=== PATIENT | female | born 1935 | race Caucasian/White ===

== ENCOUNTER → 2016-08-04 | Outpatient (CLI) | payer OTHER ==
[~2016-08-04] MED LIST: ADULT LOW DOSE81 MG PO; CARVEDILOL12.5 MG PO; COUMADIN 2.5MG2.5 M1 PO; COUMADIN 3 MG TA3 MG PO; COUMADIN 5 MG TA5 M1 PO; DILTIAZEM 24HR240 M2 PO; DIOVAN40 MG PO; HYDROCODONE-AP1 EA11 PO; KLOR-CON M2020 MEQ PO; LANOXIN 0.120.125 M1 PO; LASIX 40 MG TAB40 M2 PO; LASIX 40 MG TAB40 MG PO; LEVOTHYROXIN0.025 MG PO; MAGNEBIND 3001 EACH PO; MULTAQ400 MG PO; PRADAXA150 MG PO; PRADAXA75 MG PO; PROPOXY-N-APAP1 EACH PO; UNICOMPLEX M TA1 TA1 PO; VITAMIN D1000 UNI1 PO
--- NOTE | ~2016-08-04 | 2DMMODE ---
[facility] [place] [address] 2 D/M-MODE ECHOCARDIOGRAM Name: ESTELA STEVENSON DECEMBER Room #: REG BIJU Khan#: [id number] Admission: 08/04/16 Attend Phys: Ben Blackburn MD Discharge: Date of : 31 Date of Service: 08/04/16 1457 Report #: [id number] THIS REPORT FOR: //name// Transthoracic Echocardiography Ordering physician: Ben Blackburn MD Referring physician: Myke Blackburn MD Appeals Representative: Federica Alarcon Indications/History: ISCM, CAD. Hx: CHF, Afib, HTN BP: 130 / HR: 60bpm Height: 66in Weight: 182.6lb 87 Study data: M-mode, complete 2D, complete spectral Doppler, and color Doppler. Location: Echo laboratory. Routine. Image quality was adequate. 2D measurements Normal Normal LVID ED 44.3mm 36-57 IVS ED 10mm 6-11 LVID ES 37.4mm 23-40 LVPW ED 9.8mm 6-11 LA volume 38ml/m2 16-28 AoRoot diam 41.6mm 21-37 index ED LVOT diameter 20mm 18-23 Findings: Left ventricle: The cavity size was normal. Wall thickness was normal. Systolic function was mildly reduced. The estimated ejection fraction was in the range of 45% to 50%. Right ventricle: The cavity size was normal. Systolic function was mildly reduced. Right atrium: The atrium was mildly dilated. Left atrium: The atrium was moderately dilated. Volume index: 38ml/m2 (S). Aortic valve: Mildly thickened leaflets. Doppler: There was no stenosis. Mild regurgitation. Peak velocity: 102.5cm/s (S). Mitral valve: Mildly thickened leaflets . Doppler: [facility] [address] [place] [address] 2 D/M-MODE ECHOCARDIOGRAM Name: ESTELA STEVENSON DECEMBER Room #: DESTINI Olivo.#: [id number] Admission: 08/04/16 Attend Phys: Ben Blackburn MD Discharge: Date of : 31 Date of Service: 08/04/16 1457 Report #: [id number] There was no evidence for stenosis. Mild regurgitation. Peak E-wave velocity: 92.2cm/s. Peak gradient: 3.4mm Hg (D). Tricuspid valve: Structurally normal valve. Doppler: There was no evidence for stenosis. Moderate regurgitation. Regurgitant peak velocity: 274.5cm/s. Peak RV-RA gradient: 30mm Hg (S). Pulmonic valve: Structurally normal valve. Doppler: There was no evidence for stenosis. Trivial regurgitation. Pericardium: There was no pericardial effusion. 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 Ascending aorta was dilated at 3.9cm. Pulmonary artery: Systolic pressure was estimated to be 35mm Hg. Diastolic function: The study was not technically sufficient to allow evaluation of LV diastolic dysfunction due to atrial fibrillation. Systemic veins: Inferior vena cava: The vessel was normal in size; the respirophasic diameter changes were in the normal range (= 50%). Conclusions 1. Left ventricle: The cavity size was normal. Wall thickness was normal. Systolic function was mildly reduced. The estimated ejection fraction was in the range of 45% to 50%. 2. Right atrium: The atrium was mildly dilated. 3. Left atrium: The atrium was moderately dilated. 4. Aortic valve: Mildly thickened leaflets. Mild regurgitation. 5. Mitral valve: Mild regurgitation. 6. Tricuspid valve: Moderate regurgitation. 7. Pericardium, extracardiac: There was no pericardial effusion. <ELECTRONICALLY SIGNED> By: Ben Blackburn MD 08/04/16 1545 1457 1545 Ben Blackburn MD /abigail
--- NOTE | ~2016-08-04 | CARDNUC ---
[facility] [email or web address] [address] CARDIAC NUCLEAR IMAGING REPORT Name: ESTELA STEVENSON DECEMBER Room #: REG Erin#: [id number] Admission: 08/04/16 Attend Phys: Ben Blackburn MD Discharge: Date of : 31 Date of Service: 08/04/16 1708 Report #: [id number] THIS REPORT FOR: //name// CC: Myke Blackburn DATE OF SERVICE: 08/04/2016 Myocardial perfusion imaging study using regadenoson STUDY DATE: 08/04/2016. PRIMARY CARE PHYSICIAN: Myke Heller DO. GENDER: Female. INDICATION: Dyspnea. CORONARY HISTORY: Cardiomyopathy/CAD. CARDIOVASCULAR RISK FACTORS: Age, hypertension, diabetes mellitus. CARDIAC MEDICATIONS: Coreg, Pradaxa, Lasix, digoxin, losartan. TYPE OF STUDY: The patient underwent a SPECT study. STRESS PROTOCOL: A total of 0.4 mg of regadenoson was injected intravenously, followed by Cardiolite. The patient did not ambulate during the procedure. HEMODYNAMIC DATA: The resting heart rate was 84 beats per minute, with a blood pressure 149/90 mmHg. Following regadenoson, the heart rate increased to 122 beats per minute and the systolic blood pressure decreased to 134 mmHg. The patient had symptoms consistent with regadenoson, but no chest discomfort. ELECTROCARDIOGRAM: The resting electrocardiogram revealed atrial fibrillation, nonspecific T-wave abnormalities. Following regadenoson infusion, there were no significant arrhythmias or ST segment changes. PERFUSION IMAGING: Myocardial perfusion imaging was performed using Cardiolite, 11.6 mCi for the resting images and 36.0 mCi for the stress images. This was a same-day rest-stress imaging protocol. Gated SPECT images were obtained. Comparison of the post-pharmacologic stress and rest images revealed a mild, fixed anterior defect. The gated portion of the study revealed normal global and segmental LV systolic function, ejection fraction of 56%. [facility] [address] [place] [address] CARDIAC NUCLEAR IMAGING REPORT Name: ESTELA STEVENSON DECEMBER Room #: REG [facility].#: [id number] Admission: 08/04/16 Attend Phys: Ben Blackburn MD Discharge: Date of : 31 Date of Service: 08/04/16 1708 Report #: [id number] IMPRESSION: 1. Clinical response, nondiagnostic. 2. Stress ECG response, nonischemic. 3. Perfusion imaging, nonischemic. 4. Ventricular function, normal. CONCLUSION: This study is of low probability for inducible ischemia or prior infarct. There is normal global and segmental LV systolic function. <ELECTRONICALLY SIGNED> By: Ben Blackburn MD 08/05/16 0825 1708 1419 Ben Blackburn MD /nt
== END ==
LOC: NUC 10:59
DX: R06.00 Dyspnea, unspecified (principal); I10 Essential (primary) hypertension; E11.9 Type 2 diabetes mellitus without complications; I42.9 Cardiomyopathy, unspecified; I25.10 Atherosclerotic heart disease of native coronary artery without angina pectoris

== ENCOUNTER → 2018-09-30 | Outpatient (CLI) | payer OTHER, SELFPAY ==
[~2018-09-30] VITALS: Ht 167.6 cm; Wt 95.3 kg
[~2018-09-30] MED LIST changes: +DIOVAN160 MG PO; +LEVEMIR SUBQ; +VITAMIN D3400 UNIT PO
[2018-09-30 08:23] LABS: HEMATOCRIT 38.1 % (37.0-47.0); HEMOGLOBIN 12.5 gm/dL (12.0-15.0); MCH 29.9 pg (26.0-34.0); MCHC 32.8 g/dL (28.0-37.0); MCV 90.9 fL (80.0-100.0); RBC 4.19 mil/uL (4.20-5.00); WBC 7.8 thou/uL (4.0-11.0)
[2018-09-30 08:32] LABS: CALCIUM 10.4 mg/dL (8.5-10.1); CREATININE 1.3 mg/dL (0.6-1.0); POTASSIUM 4.1 mmol/L (3.5-5.1)
[2018-09-30 08:33] VITALS: BP 142/82
--- NOTE | 2018-09-30 08:49 | EKG ---
[address] [address] ELECTROCARDIOGRAM REPORT Name: ESTELA STEVENSON FRANCI Room #: [facility] [id number] ������������������ Admission: 09/30/18 ������������������ Attend Phys: Ben Blackburn MD Discharge: ������������������ Date of : 31 Report #: [id number] ����������������������������������������������������������������� [id number] THIS REPORT FOR: //name// [facility] Test Date: 2018-09-30 Test Time: 08:18:53 Pat Name: ESTELA STEVENSON Department: Room: Gender: F Controls Designer: MELISSA : 1935 Requested By: Ben Blackburn Order Number: [id number] MD: Karlo Toledo Measurements Intervals [place] Rate: 98 P: NE: QRS: -49 QRSD: 114 T: 61 QT: 358 QTc: 458 Interpretive Statements Atrial fibrillation Occasional premature ventricular complexes Leftward axis Nonspecific ST and T wave abnormality Compared to ECG 02/13/2014 08:50:18 No significant change was found Electronically Signed On 09-30-2018 8:49:23 CDT by Karlo Toledo [email or web address] ��������������������������������������������� <ELECTRONICALLY SIGNED> ���������������������������������������� By: Karlo Toledo MD, [facility] ��������������������������������������������� 09/30/18 0849 7 7 Karlo Toledo MD, [facility] /EPI
--- NOTE | 2018-09-30 17:32 | CATHLAB ---
[address] [place] [address] INVASIVE PROCEDURE REPORT Name: ESTELA STEVENSON DECEMBER Room #: REG Erin#: [id number] ������������� Admission: 09/30/18 ������������� Attend Phys: Ben Blackburn MD Discharge: ��� ������������� ��� Date of : 31 Date of Service: 09/30/18 173 �� Report #: [id number] �������� ��������������������������������������������[id number] THIS REPORT FOR: //name// APPROVED REPORT Study performed: 09/30/2018 09:35:07 Patient Details Patient Status: Out-Patient Room #: The patient is a 82 year-old female Event Personnel Ben Blackburn Wardrobe Supervisor, Les Gay RN RN, Monserrat Aguilar, Vin Quiroz Scrthomas Procedures Performed Left Heart Cath w/or w/o Coronaries [id number] [facility] Indication Dyspnea, CardiomyopathyPositive stress test Risk Factors Hypercholesterolemia, Hypertension Procedure Narrative The Right Groin^ was infiltrated with subcutaneous anesthesia. A PINNACLE 4FR Sheath #[id number] sheath was inserted into the RFA^. Coronary angiography was performed using coronary diagnostic catheters. The right coronary system was accessed and visualized with a JR4 catheter. The left coronary system was accessed and visualized with a JL4 catheter. The left ventricle was accessed and visualized with a PIGTAIL catheter. The patient tolerated the procedure well and there were no complications associated with the procedure. There was no hematoma. Intraoperative Conscious Sedation Sedation start time: 953 Case end Time: 101 Fentanyl 25 mcg Versed 0.5 mg Fluoro Time: 1.55 minutes Dose: DAP 3718.80 cGycm2 479 mGy Contrast Type and Amount: Visipaque [address] [facility] [address] [place] [address] INVASIVE PROCEDURE REPORT Name: ESTELA STEVENSON DECEMBER Room #: REG CL ..#: [id number] ������������� Admission: 09/30/18 ������������� Attend Phys: Ben Blackburn MD Discharge: ��� ������������� ��� Date of : 31 Date of Service: 09/30/18 1732 �� Report #: [id number] �������� ��������������������������������������������[id number] The patient's coronary anatomy is co- dominant. Diagnostic Cath Left Main This is a large caliber vessel, with no flow-limiting lesions. LAD This is a moderate size caliber vessel, traversing the anterior wall and wrapping around the apex. There is mild diffuse disease in the mid segment, 20%. Diagonal 1 This is a patent vessel, with no flow-limiting lesions. Circumflex This is a codominant vessel, with no flow-limiting lesions. OM1 This is a moderate size caliber vessel, with mild disease in the proximal segment, 20%. OM2 This is a patent vessel, with no flow-limiting lesions. OM3 This is a patent vessel, with no flow-limiting lesions. Right Coronary This is a patent vessel, with no flow-limiting lesions. R PDA This is a patent vessel, with no flow-limiting lesions. Left Ventriculography The left ventricle is mildly dilated in size with decreased contractility. The left ventricular ejection fraction is estimated to be 30-35%. Hemodynamics The aortic pressure is 139/91 mmHg with a mean of mmHg. The left ventricular pressure is 150/17 mmHg with a mean of mmHg. The left ventricular end diastolic pressure is 39 mmHg. Conclusion 1. Mild disease in the LAD and left circumflex artery. 2. Nonischemic cardiomyopathy. 3. Recommend aggressive risk factor management. ��������������������������������������������� <ELECTRONICALLY SIGNED> ���������������������������������������� By: Ben Blackburn MD ��������������������������������������������� 09/30/18 173 31 31 Ben Blackburn MD /INF
== END | disposition home or self-care (01) ==
LOC: CATH 06:56
PROVIDERS: Internal Medicine Cardiovascular Disease
DX: I25.10 Atherosclerotic heart disease of native coronary artery without angina pectoris (principal); I42.9 Cardiomyopathy, unspecified; Z98.890 Other specified postprocedural states; Z90.710 Acquired absence of both cervix and uterus; I48.91 Unspecified atrial fibrillation; E11.9 Type 2 diabetes mellitus without complications; N39.0 Urinary tract infection, site not specified; I11.0 Hypertensive heart disease with heart failure; I50.9 Heart failure, unspecified; E11.51 Type 2 diabetes mellitus with diabetic peripheral angiopathy without gangrene

== ENCOUNTER → 2021-01-31 | Outpatient (CLI) | payer OTHER | LOC: SJCVC 16:17 | PROVIDERS: ATTEND Internal Medicine Cardiovascular Disease | DX: I49.3 Ventricular premature depolarization (principal); I48.20 Chronic atrial fibrillation, unspecified; I42.9 Cardiomyopathy, unspecified; R94.31 Abnormal electrocardiogram [ECG] [EKG]; I25.10 Atherosclerotic heart disease of native coronary artery without angina pectoris; I10 Essential (primary) hypertension; R60.9 Edema, unspecified; E11.9 Type 2 diabetes mellitus without complications; Z90.49 Acquired absence of other specified parts of digestive tract; Z88.2 Allergy status to sulfonamides; Z88.8 Allergy status to other drugs, medicaments and biological substances; Z79.4 Long term (current) use of insulin; Z79.899 Other long term (current) drug therapy; Z87.891 Personal history of nicotine dependence; Z82.49 Family history of ischemic heart disease and other diseases of the circulatory system ==

== ENCOUNTER → 2021-02-13 | Outpatient (CLI) | payer OTHER | LOC: SJCVCIMAG 08:11 | PROVIDERS: ATTEND Internal Medicine Cardiovascular Disease | DX: I08.3 Combined rheumatic disorders of mitral, aortic and tricuspid valves (principal); I27.20 Pulmonary hypertension, unspecified; I11.9 Hypertensive heart disease without heart failure; R94.31 Abnormal electrocardiogram [ECG] [EKG]; I25.10 Atherosclerotic heart disease of native coronary artery without angina pectoris; I42.8 Other cardiomyopathies; E78.00 Pure hypercholesterolemia, unspecified; R60.9 Edema, unspecified; I48.91 Unspecified atrial fibrillation; E11.9 Type 2 diabetes mellitus without complications; I42.9 Cardiomyopathy, unspecified; Z90.49 Acquired absence of other specified parts of digestive tract; Z88.2 Allergy status to sulfonamides; Z88.8 Allergy status to other drugs, medicaments and biological substances; Z79.4 Long term (current) use of insulin; Z79.899 Other long term (current) drug therapy; Z87.891 Personal history of nicotine dependence; Z82.49 Family history of ischemic heart disease and other diseases of the circulatory system ==

== ENCOUNTER → 2021-03-06 | Outpatient (CLI) | payer OTHER | LOC: SJCVC 13:56 | PROVIDERS: ATTEND Internal Medicine Cardiovascular Disease | DX: R94.31 Abnormal electrocardiogram [ECG] [EKG] (principal); I48.91 Unspecified atrial fibrillation; I42.8 Other cardiomyopathies; I12.9 Hypertensive chronic kidney disease with stage 1 through stage 4 chronic kidney disease, or unspecified chronic kidney disease; N18.30 Chronic kidney disease, stage 3 unspecified; E11.22 Type 2 diabetes mellitus with diabetic chronic kidney disease; R60.9 Edema, unspecified; Z88.2 Allergy status to sulfonamides; Z91.018 Allergy to other foods; Z79.4 Long term (current) use of insulin; Z79.899 Other long term (current) drug therapy; Z72.89 Other problems related to lifestyle; Z87.891 Personal history of nicotine dependence ==

== ENCOUNTER → 2021-05-01 | Outpatient (CLI) | payer OTHER | LOC: SJCVC 14:49 | PROVIDERS: ATTEND Internal Medicine Cardiovascular Disease | DX: R94.31 Abnormal electrocardiogram [ECG] [EKG] (principal); I42.8 Other cardiomyopathies; I48.91 Unspecified atrial fibrillation; I10 Essential (primary) hypertension; R60.9 Edema, unspecified; E11.9 Type 2 diabetes mellitus without complications; Z79.2 Long term (current) use of antibiotics; Z88.1 Allergy status to other antibiotic agents; Z79.899 Other long term (current) drug therapy; Z82.49 Family history of ischemic heart disease and other diseases of the circulatory system; Z87.891 Personal history of nicotine dependence; Z72.89 Other problems related to lifestyle ==